=== PATIENT | female | born 1990 | race Caucasian/White ===

== ENCOUNTER 2016-08-22 15:19 | Emergency (ER) | payer OTHER ==
[2016-08-22] MEDS ORDERED: OPTIRAY 350 100 ML VIAL HMH IV ONE (15:20)
[2016-08-22] MEDS ORDERED: KETOROLAC 30 MG/ML VIAL ONE (17:04)
== END 2016-08-22 21:07 | disposition home or self-care (01) ==
LOC: ER 15:19
DX: K52.9 Noninfective gastroenteritis and colitis, unspecified (principal)
CPT/HCPCS: 36415; 74177; 80053; 81003; 82274; 83630; 83690; 84703; 85025; 85610; 85730; 87045; 87046; 87177; 87491; 87493; 87591; 87800; 96374; 99284; J1885; Q9967